=== PATIENT | male | born 1950 | race Caucasian/White ===

== ENCOUNTER 2018-04-06 05:31 | Inpatient (IN) ==
--- NOTE | 2018-04-02 14:02 | MH ---
cc: Dyllan Ocampo MD DATE OF ADMISSION: 04/06/2018 ADMITTING DIAGNOSIS: Osteoarthritic degeneration, left and right knee. He is now being admitted for right and left total knee arthroplasties. ADMISSION HISTORY AND PRESENT ILLNESS: This pleasant 67-year-old male is being admitted today for total knee arthroplasty of both left and right knees due to severe painful arthritic degeneration with genu varus deformities. PAST MEDICAL HISTORY: He has a history of high cholesterol, for which he takes atorvastatin; high blood pressure, for which he takes lisinopril; gout, for which he takes allopurinol and amlodipine. PAST SURGICAL HISTORY: None. REVIEW OF SYSTEMS: Noncontributory. FAMILY HISTORY: Noncontributory. SOCIAL HISTORY: He does not smoke. He does not drink. ALLERGIES: HE HAS NO KNOWN ALLERGIES. PHYSICAL EXAMINATION: GENERAL: We find a 67-year-old male, well developed, well nourished, oriented x3, complaining of pain and problems in both knees from his genu varus deformity. VITAL SIGNS: Blood pressure 118/70, pulse 92 and regular, respirations 16, temperature 98.3, pulse oximetry 98% on room air. HEENT: Eyes: PERRL. EOMI. Ears, nose, mouth clear. NECK: Supple. LUNGS: Clear. HEART: Regular rate. ABDOMEN: Soft, positive, positive bowel sounds, nontender. EXTREMITIES: Both knees have genu varus deformities with crepitus on range of motion and loss of motion. He is otherwise neurovascularly intact. IMPRESSION: Severe painful arthritic degeneration, both left and right knees, with genu varus deformity. PLAN: Admission for bilateral total knee arthroplasties today. The patient was given prescription for postoperative pain and anticoagulation control in the office and Celebrex and plans on going to rehab after surgery. Dyllan Ocampo MD JRR/ts , 01:18 PM , 01:26 PM
[2018-04-06] MEDS ORDERED: Sodium Chlor 0.9% Inj 250 ML ONE (06:17)
[2018-04-06] MEDS ORDERED: Dexamethasone Inj 20 MG/5 ML Vial IV.PUSH ONE (06:17)
[2018-04-06] MEDS: Dexamethasone Inj 20 MG/5 ML Vial ONE ×2 (06:23→06:55)
[2018-04-06] MEDS ORDERED: Chlorhexidine 4% Topical 120 APPLIC/120 ML Bottle TOPICAL SCH (06:30)
[2018-04-06] MEDS ORDERED: Chlorhexidine Gluconate 2% 1 Pack (2 Cloths) TOPICAL SCH (06:30)
[2018-04-06] MEDS ORDERED: Metoprolol Tartrate 25 MG Tablet PO SCH (06:30)
[2018-04-06] MEDS ORDERED: Sodium Chlor 0.9% Inj 80 ML, Bupivacaine Liposo PF 1.3% Inj 20 ML, Bupivacaine PF 0.25%... P-ARTICULR SCH ×3 (06:45)
[2018-04-06] MEDS ORDERED: SODIUM CHLOR 0.9% IV.SIG SCH ×2 (07:00→09:20)
[2018-04-06] MEDS ORDERED: ceFAZolin 2 GM/NS 100 ML IV; Q8H IV.SIG SCH ×2 (07:00)
[2018-04-06] MEDS ORDERED: Vancomycin Inj 1,000 MG in Sodium Chlor 0.9% Inj 250 ML IV.SIG SCH (07:00)
[2018-04-06] MEDS ORDERED: TRANEXAMIC ACID IV.SIG SCH ×2 (07:00→09:20)
[2018-04-06] MEDS ORDERED: Sodium Chlor 0.9% Inj 500 ML IV.SIG SCH (07:00)
[2018-04-06] MEDS ORDERED: Post-op Orders (for Pharmacy) OTHER STA (07:50)
[2018-04-06] MEDS ORDERED: Bisacodyl 10 MG Supp RECTAL PRN (07:50)
--- NOTE | 2018-04-06 07:58 | P.DCO ---
- Physical Therapy Order: Evaluate and treat, Improve ambulation, Strength and gait training - Occupational Therapy Order: Evaluate and treat - Home Health Nursing Order: Medical education - Case Management Consult Yes - Certification I have seen patient Scott Lerner on 04/06/18. My clinical findings support the need for the requested home health care services because: High risk of falls I certify that my clinical findings support that this patient is homebound because: Post-op weakness, Unsteady gait/balance
[2018-04-06] MEDS ORDERED: Tobramycin Sulfate 1,200 MG Vial (for ortho/sterile core) OTHER ONE (08:47)
[2018-04-06] MEDS ORDERED: Phenylephrine/NS 1000 MCG/10ML Syringe IV.PUSH ONE (12:00)
[2018-04-06] MEDS ORDERED: Lidocaine PF 1% Inj 5 ML Syringe INFILTRATN ONE (12:00)
[2018-04-06] MEDS ORDERED: Neostigmine Inj 5 MG/5 ML Syringe IV.PUSH ONE (12:00)
[2018-04-06] MEDS ORDERED: Glycopyrrolate Inj 1 MG/5 ML Syringe IV.PUSH ONE (12:00)
--- NOTE | 2018-04-06 12:02 | P.CONIM ---
History of Present Illness Consult date: 04/06/18 Requesting Physician: Arabella Ocampo Reason for Consult: Medical Management Primary Care Provider: Gildardo Herndon History of Present Illness: Mr. Lerner is a pleasant 67 y/o male with HTN, BPH, CKD stage 3, GERD and osteoarthritis. Pt was admitted to [facility] on 04/06/[address] Ocampo for bilateral total knee replacements for severe osteoarthritis. The [facility] Hospitalist team was consulted to help with medical management. Post-operatively pt complained of some abdominal distension and gas pain. Some nausea but no vomiting. Denies any chest pain, SOB or palpitations. Past Medical Hx: HTN CKD, stage 3 (Cr 1.37/BUN 23, GFR 52 on 03/30/18) BPH Osteoarthritis Anxiety Hx of gout Vitamin D deficiency GERD Gonzales's Esophagus Hx of colon polyps Past Surgical Hx: Left knee arthroscopy with partial medical meniscectomy on 11/07/[address] White Tonsillectomy EGD/colonoscopy Family Hx: Father with hx of lymphoma Social Hx: Denies any alcohol, tobacco or illicit drug use Pt is and lives locally [facility] - History History Provided By: Patient - Medical History Medical History: Medical History (Last Reviewed 04/09/18 @ 14:52 by Sadaf Mcknight) BPH (benign prostatic hyperplasia) Barretts esophagus Chronic kidney disease, stage 3 Colon polyps Vitamin D deficiency Anxiety Arthritis GERD (gastroesophageal reflux disease) Gout High cholesterol Hypertension Wears glasses - Surgical History Surgical History: Surgical History (Last Reviewed 04/09/18 @ 14:52 by Sadaf Mcknight) History of tonsillectomy History of arthroscopy of left knee - Tobacco History Second Hand Smoke Exposure: Yes Smoking Status: Never smoker - Alcohol History How Often Do You Have a Drink Containing Alcohol: Never - Substance Use History Substance History: No History of Abuse - Travel History Recent Travel in the [place] Within the Last 8 Weeks: No Recent Travel Out of the Country Within the Last 8 Weeks: No Medications and Allergies Allergies Allergy/AdvReac Type Severity Reaction Status Date / Time No Known Allergies Allergy Verified 04/06/18 06:08 Home Medications Medication Instructions Recorded Confirmed Type allopurinol 150 mg PO BID 03/30/18 04/09/18 History alprazolam 1 mg PO BID PRN 03/30/18 04/09/18 History amitriptyline 25 mg PO HS 03/30/18 04/09/18 History amlodipine 5 mg PO DAILY 03/30/18 04/09/18 History atorvastatin 20 mg PO DAILY 03/30/18 04/09/18 History hydrochlorothiazide 25 mg PO DAILY 03/30/18 04/09/18 History lisinopril 40 mg PO DAILY 03/30/18 04/09/18 History omeprazole 20 mg PO DAILY 03/30/18 04/09/18 History zolpidem 5 mg PO HS PRN 03/30/18 04/09/18 History Active Medications: Active Medications Hydrocodone Bitart/Acetaminophen ([place] 7.5/325) 1 tab PO Q4H PRN PRN Reason: PAIN LESS THAN 5 ON SCALE Hydrocodone Bitart/Acetaminophen ([place] 7.5/325) 2 tab PO Q6H PRN PRN Reason: PAIN SCALE 5 TO 10 Al Hydroxide/Mg Hydroxide (Milk Of Magnesia Liq) 30 ml PO BID PRN PRN Reason: Mild Constipation Allopurinol (Zyloprim) 150 mg PO BID [facility] Alprazolam (Xanax) 1 mg PO BID PRN PRN Reason: Anxiety Amitriptyline HCl (Elavil) 25 mg PO DAILY [facility] Amlodipine Besylate (Norvasc) 5 mg PO DAILY [facility] Apixaban (Eliquis) 2.5 mg PO BID [facility] Atorvastatin Calcium (Lipitor) 20 mg PO DAILY [facility] Bisacodyl (Dulcolax Supp) 10 mg RECTAL DAILY PRN PRN Reason: SEVERE CONSITIPATION Chlorhexidine Gluconate (Chlorhexidine 2% Cloth) 3 pack TOPICAL [employer]IL[employer]SE [employer] [facility] Stop: 04/09/18 06:16 Last Admin: 04/06/18 05:40 Dose: 3 pack Chlorhexidine Gluconate (Hibiclens 4% Topical) 1 applicatio TOPICAL ONCE [facility] Stop: 04/10/18 06:29 Last Admin: 04/06/18 06:10 Dose: 1 applicatio Sodium Chloride 80 ml/Bupivacaine Liposome 20 ml/Bupivacaine HCl 20 ml 0 ml P- ARTICULR ONCE [facility] Last Admin: 04/06/18 09:40 Dose: 120 bag Hydrochlorothiazide (Hydrodiuril) 25 mg PO DAILY [facility] Sodium Chloride (Ns Inj) 500 mls @ 30 mls/hr IV.SIG .Q10H [facility] Stop: 08/30/18 06:16 Tranexamic Acid 849 mg/ Sodium (Chloride) 108.49 mls @ 200 mls/hr IV.SIG ONCE [facility] Stop: 04/07/18 06:59 Last Infusion: 04/06/18 08:15 Dose: Infused Tranexamic Acid 849 mg/ Sodium (Chloride) 108.49 mls @ 200 mls/hr IV.SIG ONCE [facility] Stop: 04/07/18 09:19 Last Infusion: 04/06/18 11:15 Dose: Infused Vancomycin HCl 1,000 mg/ (Sodium Chloride) 250 mls @ 250 mls/hr IV.SIG [employer]ILHOUSE [employer] [facility] Stop: 04/09/18 06:17 Last Admin: 04/06/18 06:59 Dose: Not Given Cefazolin Sodium 2,000 mg/ (Sodium Chloride) 100 mls @ 200 mls/hr IV.SIG ONCE [facility] Cefazolin Sodium 1,000 mg/ (Sodium Chloride) 100 mls @ 200 mls/hr IV.SIG Q6H [facility] Stop: 04/07/18 01:29 Lactated Ringer's (Lr 1000 Ml Inj) 1,000 mls @ 80 mls/hr IV.CONT .[id number] [facility] Last Admin: 04/06/18 09:15 Dose: 80 mls/hr Lactulose (Lactulose Liq) 30 ml PO DAILY PRN PRN Reason: SEVERE CONSITIPATION Lisinopril (Prinivil) 40 mg PO DAILY [facility] Metoprolol Tartrate (Lopressor) 25 mg PO [employer] [facility] Stop: 04/09/18 06:16 Morphine Sulfate (Morphine Inj) 2 mg IV.PUSH Q3H PRN PRN Reason: BREAKTHROUGH PAIN Multivitamins/Minerals (Theragran-M) 1 tab PO BID [facility] Stop: 06/05/18 08:59 Ondansetron HCl (Zofran Odt) 4 mg PO Q6H PRN PRN Reason: NAUSEA OR VOMITING Pantoprazole Sodium (Protonix) 20 mg PO DAILY [facility] Povidone Iodine (Betadine 5% Antisepsis Kit) 1 applicatio EACH NARE [employer] [facility] Stop: 04/09/18 06:16 Last Admin: 04/06/18 06:58 Dose: 1 applicatio Senna/Docusate Sodium (Lashell-Colace) 1 tab PO BID [facility] Sennosides (Senokot) 17.2 mg PO BID PRN PRN Reason: Moderate Constipation Sodium Chloride (Ns Flush) 2 ml IV.FLUSH BID [facility] Sodium Chloride (Ns Flush) 2 ml IV.FLUSH PRN PRN PRN Reason: FLUSH AFTER USING IV ACCESS Zolpidem Tartrate (Ambien) 5 mg PO HS PRN PRN Reason: Sleep Exam Vital signs: Vital Signs 04/06/18 06:12 Temperature 97.7 F Pulse Rate 77 Respiratory Rate 18 Blood Pressure 148/82 H Pulse Oximetry 95 Intake & Output 04/05/18 04/06/18 04/06/18 18:59 06:59 18:59 Intake Total 2716.98 / 2716.98 Output Total 200 / 200 Balance 2516.98 / 2516.98 Weight 84.9 kg Intake: IV 1216.98 / 1216.98 LR 1000 mL Inj 1,000 ML @ 30 1000 / 1000 mls/hr IV.SIG .Q24H [facility] Rx#: [id number] Cyklokapron Inj 849 MG In NS 216.98 / 216.98 Inj 100 ML @ 200 mls/hr IV.SIG ONCE [facility] Rx#:[id number] Anesthesia Amount 1500 / 1500 Output: Estimated Blood Loss 200 / 200 Other: Weight On Admission 84.9 kg Narrative: GENERAL: NAD, AAOx3 SKIN: Warm and dry. HEENT: Atraumatic. Normocephalic. Pupils equal and round. No scleral icterus. No injection or drainage. No nasal bleeding or discharge. Mucous membranes pink and moist. NECK: Trachea midline. No JVD. CARDIO: Regular rate and rhythm. RESP: No accessory muscle use. Clear to auscultation. Breath sounds equal bilaterally. ABD: Abdomen soft, non-tender, nondistended. Hepatic and splenic margins not palpable. EXT: Extremities without clubbing, cyanosis, or edema. No obvious deformities. NEURO: Awake and alert. No obvious cranial nerve deficits. Motor grossly within normal limits. Five out of 5 muscle strength in the arms and legs. Normal speech. PSYCH: Appropriate mood and affect; insight and judgment normal. Results - Labs CBC & Chem 7: 04/08/18 15:17 04/08/18 04:10 Labs: Laboratory Results - last 24 hr 04/06/18 06:05 Blood Type A Positive Blood Type Recheck Required Antibody Screen Negative Assessment and Plan - Assessment (1) Osteoarthritis of both knees Code(s): M17.0 - Bilateral primary osteoarthritis of knee Status: Chronic Plan: Osteoarthritis bilateral knees s/p Bilateral TKR on 04/06/18 - Pt is a 67 y/o male with HTN, BPH, CKD stage 3, GERD and osteoarthritis. - Pt was admitted to [facility] on 04/06/[address] Ocampo for bilateral total knee replacements for severe osteoarthritis. - Post-op pain control per Ortho - PT daily - IS - Constipation precautions - Eliquis is ordered for DVT prophylaxis post-op - Check KUB HTN - Home meds resumed - Will monitor BP post-operatively CKD, stage 3 - Stable - Monitor labs GERD - PPI (2) Status post bilateral knee replacements Code(s): Z96.653 - Presence of artificial knee joint, bilateral Status: Acute (3) HTN (hypertension) Code(s): I10 - Essential (primary) hypertension Status: Chronic (4) CKD (chronic kidney disease) stage 3, GFR 30-59 ml/min Code(s): N18.3 - Chronic kidney disease, stage 3 (moderate) Status: Chronic (5) GERD (gastroesophageal reflux disease) Code(s): K21.9 - Gastro-esophageal reflux disease without esophagitis Status: Chronic - Attending Attestation Patient examined. Assessment and plan formulated with Chasity Mendoza PA-C. I agree with the above. (3) HTN (hypertension) Qualifiers: Hypertension type: essential hypertension Qualified Code(s): I10 - Essential (primary) hypertension (5) GERD (gastroesophageal reflux disease) Qualifiers: Esophagitis presence: esophagitis presence not specified Qualified Code(s): K21.9 - Gastro-esophageal reflux disease without esophagitis
[2018-04-06] MEDS ORDERED: *Meperidine Inj 25 MG/ML Vial PERIprocedural Use ONLY ONE (12:12)
[2018-04-06] MEDS ORDERED: Morphine Inj 4 MG/ML Vial ONE (12:14)
[2018-04-06] MEDS ORDERED: fentaNYL Citrate Inj 100 MCG/2 ML Ampul ONE ×2 (12:14)
[2018-04-06] MEDS ORDERED: *morphine SULFATE 10 MG/ML PERIprocedure ONLY ONE (12:26)
[2018-04-06] MEDS ORDERED: *morphine SULFATE 4 MG/ML PERIprocedure ONLY ONE (13:01)
--- NOTE | 2018-04-06 13:03 | MP ---
cc: Dyllan Ocampo MD DATE OF OPERATION: 04/06/2018 PREOPERATIVE DIAGNOSIS: Osteoarthritic degeneration, left and right knees. POSTOPERATIVE DIAGNOSIS: Osteoarthritic degeneration, left and right knees. PROCEDURE PERFORMED: Bilateral total knee arthroplasties using Consensus components, left knee using a size 4 femur, size 3 tibia, size 16 insert and size 1 patella with 2 batches of tobramycin-impregnated DePuy cement. The right knee was done using Consensus components, size 4 femur, 3 tibia, 12 insert and 1 patella with 2 batches of tobramycin-impregnated cement. SURGEON: Dyllan Ocampo MD TOW CAR DRIVER: YANIQUE Aguillon ANESTHESIA: General intubation and block. DESCRIPTION OF PROCEDURE: The left knee was done first. After successful induction of anesthesia, the patient is placed on the operating room table in the supine position. The knee is prepped and draped in the usual manner. A tourniquet is inflated at the upper thigh and set to 300 mmHg pressure after exsanguination of the lower extremity. A longitudinal incision is made extending from 3 inches proximal to the superior pole of the patella, across the patella in longitudinal fashion, and down past the insertion of the tibial tubercle into the proximal tibia. The incision is carried down through subcutaneous tissue along the medial aspect of the patella and retinaculum, down through the capsule to expose the knee joint. The patella and patellar tendon are freed up enough to allow the patella to be inverted and retracted off the lateral side of the knee joint. The knee joint is left exposed. Small osteophytes are removed. All soft tissue is removed to allow proper position of the femoral and tibial cutting jig guide. The first femoral jig is then inserted along the distal end of the femur after first measuring to decide whether this is a small, medium, or large component. The notch is then drilled and the tibial cutting guide inserted into the femoral cutting guide, along with the ankle brace to allow for proper measurement of the tibial cutting surface that needed to be resected. Pins are inserted into the tibial cutting jig and femoral cutting jig to hold them in place. An oscillating saw is then used to resect the surface of the tibia. The surface of the tibia is then completely removed using sharp and blunt dissection. The anterior and posterior cuts of the femur are then made as well using an oscillating saw through the cutting guide. All guides are then removed and the varus/valgus angulation cutting guide applied to the femur for proper measurement of the proper amount of valgus. The anterior cutting guide for the femur is then inserted at the anterior femoral cuts made. Next, the first block trial is inserted into the femur to allow for proper condyle drill holes to be made which are then made followed by removal of the bone between the condyles using an oscillating saw as well as the bone removed at the most posterior surface of the condyle. After this, this guide is removed and the chamfer cuts made using the chamfer cutting guide from both anterior and posterior. Next, the femoral trial is then inserted, the tibial surface reflected anterior to expose the tibial surface and a tibial stem guide is inserted after first measuring for a standard, standard plus, large, or large plus surface to be used. After the stem is impacted the trial tibial surface is applied followed by the trial meniscal components. After full range of motion is found with the appropriate length meniscal components varying the patella is prepared by resecting the posterior aspect of the patella using an oscillating saw, inserting a trial. The trial is then removed and the cruciate cutting guide applied using the bur to cut the cruciate cuts. After cruciate cuts are made all trials are removed. The wound is irrigated copiously with antibiotic solution and Water Pik and the actual components inserted into place using the aforementioned components. After the cement has hardened and the components are found to have full range of motion with no instability, the tourniquet is deflated, total tourniquet time being 51 minutes at 300 mmHg pressure. The wound again is irrigated copiously with antibiotic solution, meticulous hemostasis achieved. The deep fascia was approximated with running #2 Quill and subcutaneous tissue approximated using interrupted and running 2-0 FiberWire and skin approximated with jaclyn. Wet and dry dressing is applied to the wound followed by a Prineo dressing, sterile dressing and knee immobilizer. No drain was utilized. The right knee was then done. The knee is prepped and draped in the usual manner. A tourniquet is inflated at the upper thigh and set to 300 mmHg pressure after exsanguination of the lower extremity. A longitudinal incision is made extending from 3 inches proximal to the superior pole of the patella, across the patella in longitudinal fashion, and down past the insertion of the tibial tubercle into the proximal tibia. The incision is carried down through subcutaneous tissue along the medial aspect of the patella and retinaculum, down through the capsule to expose the knee joint. The patella and patellar tendon are freed up enough to allow the patella to be inverted and retracted off the lateral side of the knee joint. The knee joint is left exposed. Small osteophytes are removed. All soft tissue is removed to allow proper position of the femoral and tibial cutting jig guide. The first femoral jig is then inserted along the distal end of the femur after first measuring to decide whether this is a small, medium, or large component. The notch is then drilled and the tibial cutting guide inserted into the femoral cutting guide, along with the ankle brace to allow for proper measurement of the tibial cutting surface that needed to be resected. Pins are inserted into the tibial cutting jig and femoral cutting jig to hold them in place. An oscillating saw is then used to resect the surface of the tibia. The surface of the tibia is then completely removed using sharp and blunt dissection. The anterior and posterior cuts of the femur are then made as well using an oscillating saw through the cutting guide. All guides are then removed and the varus/valgus angulation cutting guide applied to the femur for proper measurement of the proper amount of valgus. The anterior cutting guide for the femur is then inserted at the anterior femoral cuts made. Next, the first block trial is inserted into the femur to allow for proper condyle drill holes to be made which are then made followed by removal of the bone between the condyles using an oscillating saw as well as the bone removed at the most posterior surface of the condyle. After this, this guide is removed and the chamfer cuts made using the chamfer cutting guide from both anterior and posterior. Next, the femoral trial is then inserted, the tibial surface reflected anterior to expose the tibial surface and a tibial stem guide is inserted after first measuring for a standard, standard plus, large, or large plus surface to be used. After the stem is impacted the trial tibial surface is applied followed by the trial meniscal components. After full range of motion is found with the appropriate length meniscal components varying the patella is prepared by resecting the posterior aspect of the patella using an oscillating saw, inserting a trial. The trial is then removed and the cruciate cutting guide applied using the bur to cut the cruciate cuts. After cruciate cuts are made all trials are removed. The wound is irrigated copiously with antibiotic solution and Water Pik and the actual components inserted into place using the aforementioned components. After the cement has hardened and the components are found to have full range of motion with no instability, the tourniquet is deflated, total tourniquet time being 49 minutes at 300 mmHg pressure. The wound again is irrigated copiously with antibiotic solution, meticulous hemostasis achieved. The deep fascia was approximated with running #2 Quill, subcutaneous tissue approximated using interrupted and running 2-0 Quill sutures and skin approximated with jaclyn. Wet and dry dressing is applied to the wound followed by a Prineo dressing, sterile dressing and knee immobilizer. No drain was utilized. Exparel 120 mL was used, half in each knee, a combination of Exparel, normal saline and 0.25% Marcaine plain for extra pain control. The left knee necessitated repair of the medial collateral ligament with #1 Ti-Cron to assure a stable knee. The estimated blood loss on the right knee was 100 mL ESTIMATED BLOOD LOSS: For the left knee was 100 mL. For the right knee was 100 mL. COUNTS: Sponge and suture counts were correct. COMPONENTS: The components used were Consensus components, left knee using a size 4 femur, size 3 tibia, size 16 insert and size 1 patella with 2 batches of tobramycin-impregnated DePuy cement. The right knee was done using Consensus components, size 4 femur, 3 tibia, 12 insert and 1 patella with 2 batches of tobramycin-impregnated cement. The patient tolerated the procedure well and left the operating room in satisfactory condition. YANIQUE Nicholas, was present during the entire procedure to include patient positioning and the procedure. The medical necessity of the nurse practitioner certified pathology assistant was indicated in this case due to the surgical complexity of the case itself. During the surgical case, the surgical processor was working the back table and my surgical processor YANIQUE was directly assisting me. JMD ALEXIS Loomis/saida , 12:04 PM , 12:11 PM
--- NOTE | 2018-04-06 13:03 | XR ---
EXAM DATE: 04/06/2018 12:37 PM EDT AGE/SEX: 67 years / Male INDICATIONS: Total right knee replacement. CLINICAL DATA: This is the patient's initial encounter. Patient reports that signs and symptoms have been present for 1 day and indicates a pain score of Nonresponsive. MEDICAL/SURGICAL HISTORY: None. None. COMPARISON: No prior exams available for comparison. FINDINGS: Right knee arthroplasty in anatomic alignment. Hardware appears intact. Osseous structures are intact without acute bony fracture. Immediate postsurgical soft tissue changes noted. CONCLUSION: 1. Status post right knee arthroplasty in anatomic alignment without acute bony fracture. Electronically signed by: Zohaib Woodard MD 04/06/2018 1:02 PM EDT
--- NOTE | 2018-04-06 13:04 | XR ---
EXAM DATE: 04/06/2018 12:36 PM EDT AGE/SEX: 67 years / Male INDICATIONS: Total left knee replacement. CLINICAL DATA: This is the patient's initial encounter. Patient reports that signs and symptoms have been present for 1 day and indicates a pain score of Nonresponsive. MEDICAL/SURGICAL HISTORY: None. None. COMPARISON: No prior exams available for comparison. FINDINGS: Left knee arthroplasty components in anatomic alignment. Hardware appears intact. Osseous structures are intact without acute bony fracture. Immediate postsurgical features are noted in the soft tissues . CONCLUSION: 1. Left knee arthroplasty in anatomic alignment without acute fracture. Electronically signed by: Zohaib Woodard MD 04/06/2018 1:03 PM EDT
[2018-04-06] MEDS: amLODIPine 5 MG Tablet PO SCH (13:05)
[2018-04-06] MEDS: Senna/Docusate Sodium 8.6/50 MG Tablet PO SCH (13:05)
[2018-04-06] MEDS: Amitriptyline 25 MG Tablet PO SCH ×2 (13:05→23:39)
[2018-04-06] MEDS: Lisinopril 20 MG Tablet PO SCH (13:05)
[2018-04-06] MEDS: Allopurinol 300 MG Tablet PO SCH (13:06)
[2018-04-06] MEDS: Pantoprazole Sodium 20 MG DR Tablet PO SCH (13:06)
[2018-04-06] MEDS: Multivitamin/Minerals Therapeutic Tablet PO SCH (13:06)
--- NOTE | 2018-04-06 15:59 | P.BOP ---
- Preoperative Diagnosis (1) Osteoarthritis of both knees - Postoperative Diagnosis (1) Status post bilateral knee replacements Date of procedure: 04/06/18 Procedure: Bilateral Total knees Implants: See implant record Anesthesia: GETA (General) Surgeon: Dyllan Ocampo MD Hub Borer: Yumiko Ortiz Estimated blood loss (mL): 200 Tourniquet time (min): 102 (Right knee: 50 mins Left Knee: 52 mins at 300mmHg) Urine output (mL): 0 (no pitt) Pathology: none sent Condition: stable Disposition: PACU
[2018-04-06] MEDS: Morphine Inj 4 MG/ML Vial IV.PUSH PRN (16:56)
--- NOTE | 2018-04-06 19:24 | XR ---
EXAM DATE: 04/06/2018 7:21 PM EDT AGE/SEX: 67 years / Male INDICATIONS: Distention. CLINICAL DATA: This is the patient's initial encounter. Patient reports that signs and symptoms have been present for 3 days and indicates a pain score of 9/10. MEDICAL/SURGICAL HISTORY: . Knee surgery. Since surgery, patient states that he is constipated and is having trouble eating. . Knee surgery COMPARISON: No prior exams available for comparison. FINDINGS: The stomach is distended. The remaining aspects of the bowel do not appear distended. Free air is no t seen. There is degenerative change in the lower lumbar spine. The lung bases are unremarkable. CONCLUSION: Distended stomach. Electronically signed by: Ji Kwong MD 04/06/2018 7:22 PM EDT
[2018-04-06] MEDS ORDERED: Zolpidem Tartrate 5 MG Tablet PO PRN (21:00)
[2018-04-07 06:28] LABS: Hematocrit 35.8 % (39.0-51.0); Hemoglobin 12.2 gm/dL (13.0-17.0)
[2018-04-07] MEDS: Senna/Docusate Sodium 8.6/50 MG Tablet PO SCH ×3 (08:14→21:16)
[2018-04-07] MEDS: Allopurinol 300 MG Tablet PO SCH ×3 (08:14→21:17)
[2018-04-07] MEDS: Multivitamin/Minerals Therapeutic Tablet PO SCH ×3 (08:14→21:18)
[2018-04-07] MEDS: Pantoprazole Sodium 20 MG DR Tablet PO SCH (09:07)
[2018-04-07] MEDS: hydroCHLOROthiazide 25 MG Tablet PO SCH (09:09)
[2018-04-07] MEDS: amLODIPine 5 MG Tablet PO SCH (09:09)
[2018-04-07] MEDS: Lisinopril 20 MG Tablet PO SCH (09:10)
[2018-04-07] MEDS: Morphine Inj 4 MG/ML Vial IV.PUSH PRN ×2 (09:11→19:52)
[2018-04-07] MEDS: Amitriptyline 25 MG Tablet PO SCH (09:11)
--- NOTE | 2018-04-07 10:32 | P.PNOP ---
Subjective Interval history: Pt basically comfortable today with his knees. His main complaint is abdominal gas and sore throat. Physical Exam Vital signs: Vital Signs 04/06/18 12:05 04/06/18 12:15 04/06/18 12:30 Temperature 97.8 F Pulse Rate 117 H 111 H 105 H Respiratory Rate 20 19 16 Blood Pressure 133/80 141/72 H 107/64 Pulse Oximetry 99 99 98 04/06/18 12:45 04/06/18 13:00 04/06/18 13:30 Temperature Pulse Rate 108 H 107 H 108 H Respiratory Rate 17 14 16 Blood Pressure 106/66 106/62 123/90 Pulse Oximetry 97 98 97 04/06/18 14:00 04/06/18 15:00 04/06/18 15:37 Temperature 98 F Pulse Rate 110 H 105 H 102 H Respiratory Rate 17 13 13 Blood Pressure 100/64 111/63 103/56 L Pulse Oximetry 97 98 97 04/06/18 16:00 04/07/18 08:00 Temperature 97.3 F L 97.6 F Pulse Rate 107 H 101 H Respiratory Rate 16 17 Blood Pressure 100/58 L 133/74 Pulse Oximetry 95 98 Intake & Output 04/06/18 04/07/18 04/07/18 18:59 06:59 18:59 Intake Total 2973.98 / 2973.98 420 / 420 100 / 100 Output Total 200 / 200 500 / 500 Balance 2773.98 / 2773.98 -80 / -80 100 / 100 Weight 105.7 kg Intake: IV 1473.98 / 1473.98 100 / 100 100 / 100 LR 1000 mL Inj 1,000 ML @ 80 157 / 157 100 / 100 mls/hr IV.CONT .[id number] [facility] Rx# :[id number] LR 1000 mL Inj 1,000 ML @ 30 1000 / 1000 mls/hr IV.SIG .Q24H [facility] Rx#: [id number] Cyklokapron Inj 849 MG In NS 216.98 / 216.98 Inj 100 ML @ 200 mls/hr IV.SIG ONCE [facility] Rx#:[id number] Ancef Inj 1,000 MG In NS Inj 100 / 100 100 / 100 100 ML @ 200 mls/hr IV.SIG Q6H [facility] Rx#:[id number] Oral 320 / 320 Anesthesia Amount 1500 / 1500 Output: Urine 500 / 500 Estimated Blood Loss 200 / 200 Other: Date of Last Bowel Movement 04/05/18 04/05/18 - Constitutional no acute distress Results - Labs CBC & Chem 7: 04/07/18 04:27 Laboratory Results - last 24 hr 04/07/18 04:27 Hgb 12.2 L Hct 35.8 L - Imaging Impressions Abdomen X-Ray 04/06/18 00:00 CONCLUSION: Distended stomach. Knee X-Ray 04/06/18 00:00 CONCLUSION: 1. Left knee arthroplasty in anatomic alignment without acute fracture. Knee X-Ray 04/06/18 07:50 CONCLUSION: 1. Status post right knee arthroplasty in anatomic alignment without acute bony fracture. Assessment and Plan - Problem List (1) Status post bilateral knee replacements Code(s): Z96.653 - Presence of artificial knee joint, bilateral Status: Acute - Attending Attestation Attending Attestation: Doing well first day post op. Cepacol lozenges for throat. Awaiting discharge over next day or so to [facility] for rehab.
--- NOTE | 2018-04-07 11:17 | P.PNIM ---
Subjective Interval history: Pt continues to c/o abdominal distension. Physical Exam Vital signs: 04/06/18 16:00 04/07/18 08:00 04/07/18 11:07 Temperature 97.3 F L 97.6 F Pulse Rate 107 H 101 H Respiratory Rate 16 17 Blood Pressure 100/58 L 133/74 Pulse Oximetry 95 98 99 Narrative: GENERAL: This is a well-nourished, well-developed patient, in no apparent distress. CARDIOVASCULAR: Regular rate and rhythm without murmurs, gallops, or rubs. RESPIRATORY: Clear to auscultation. Breath sounds equal bilaterally. No wheezes , rales, or rhonchi. GASTROINTESTINAL: Abdomen soft, mild abdominal distension, decreased bowel sounds MUSCULOSKELETAL: Extremities without clubbing, cyanosis, or edema. NEURO: Alert & Oriented x4 to person, place, time, situation. Moves all ext x4 Results - Labs CBC & Chem 7: 04/08/18 15:17 04/08/18 04:10 - Imaging Impressions Abdomen X-Ray 04/06/18 00:00 CONCLUSION: Distended stomach. Knee X-Ray 04/06/18 00:00 CONCLUSION: 1. Left knee arthroplasty in anatomic alignment without acute fracture. Knee X-Ray 04/06/18 07:50 CONCLUSION: 1. Status post right knee arthroplasty in anatomic alignment without acute bony fracture. Assessment and Plan - Assessment (1) Osteoarthritis of both knees Code(s): M17.0 - Bilateral primary osteoarthritis of knee Status: Chronic Plan: Osteoarthritis bilateral knees s/p Bilateral TKR on 04/06/18 - Pt is a 67 y/o male with HTN, BPH, CKD stage 3, GERD and osteoarthritis. - Pt was admitted to [facility] on 04/06/[address] Ocampo for bilateral total knee replacements for severe osteoarthritis. - Post-op pain control per Ortho - PT daily - IS - Constipation precautions - Eliquis is ordered for DVT prophylaxis post-op HTN -stable - HCTZ, norvasc CKD, stage 3 - Stable - Monitor labs GERD - PPI Abdominal distension - KUB (04/06) --> gastric distension - encourage movement - reglan 10mg TID x 24 hours. - Simethicone (2) Status post bilateral knee replacements Code(s): Z96.653 - Presence of artificial knee joint, bilateral Status: Acute (3) HTN (hypertension) Code(s): I10 - Essential (primary) hypertension Status: Chronic (4) CKD (chronic kidney disease) stage 3, GFR 30-59 ml/min Code(s): N18.3 - Chronic kidney disease, stage 3 (moderate) Status: Chronic (5) GERD (gastroesophageal reflux disease) Code(s): K21.9 - Gastro-esophageal reflux disease without esophagitis Status: Chronic (3) HTN (hypertension) Qualifiers: Hypertension type: essential hypertension Qualified Code(s): I10 - Essential (primary) hypertension (5) GERD (gastroesophageal reflux disease) Qualifiers: Esophagitis presence: esophagitis presence not specified Qualified Code(s): K21.9 - Gastro-esophageal reflux disease without esophagitis
[2018-04-07] MEDS: Simethicone 125 MG Chew Tablet PO SCH ×2 (15:13→17:38)
[2018-04-07] MEDS: Polyethylene Glycol 3350 17 GM Packet PO SCH (21:18)
[2018-04-07] MEDS ORDERED: HYDROmorphone PF Inj 2 MG/ML Vial IV.PUSH PRN (21:55)
[2018-04-08 04:30] LABS: Hematocrit 35.2 % (39.0-51.0); Hemoglobin 11.9 gm/dL (13.0-17.0)
[2018-04-08 04:51] LABS: Calcium 8.6 mg/dL (8.5-10.1); Carbon Dioxide 29.2 meq/L (21.0-32.0)
[2018-04-08] MEDS: Allopurinol 300 MG Tablet PO SCH ×2 (09:30→21:23)
[2018-04-08] MEDS: Pantoprazole Sodium 20 MG DR Tablet PO SCH (09:31)
[2018-04-08] MEDS: Lisinopril 20 MG Tablet PO SCH (09:31)
[2018-04-08] MEDS: amLODIPine 5 MG Tablet PO SCH (09:31)
[2018-04-08] MEDS: Multivitamin/Minerals Therapeutic Tablet PO SCH ×2 (09:31→21:23)
[2018-04-08] MEDS: Amitriptyline 25 MG Tablet PO SCH (09:32)
[2018-04-08] MEDS: Senna/Docusate Sodium 8.6/50 MG Tablet PO SCH ×2 (09:32→21:23)
[2018-04-08] MEDS: hydroCHLOROthiazide 25 MG Tablet PO SCH (09:32)
[2018-04-08] MEDS: Simethicone 125 MG Chew Tablet PO SCH ×3 (09:33→18:49)
--- NOTE | 2018-04-08 10:52 | P.PNOP ---
Subjective Interval history: Up in chair, exercising his legs Pain level 6/10 Physical Exam Vital signs: Vital Signs 04/07/18 11:07 04/07/18 12:00 04/07/18 16:00 Temperature 97.7 F 97.6 F Pulse Rate 110 H 117 H Respiratory Rate 16 19 Blood Pressure 126/78 128/74 Pulse Oximetry 99 96 93 L 04/07/18 20:00 04/08/18 00:00 04/08/18 04:00 Temperature 97.9 F 97.9 F 98 F Pulse Rate 114 H 115 H 111 H Respiratory Rate 18 18 18 Blood Pressure 135/76 128/59 L 123/71 Pulse Oximetry 93 L 93 L 93 L 04/08/18 08:00 Temperature 98.0 F Pulse Rate 106 H Respiratory Rate 19 Blood Pressure 129/70 Pulse Oximetry 93 L Intake & Output 04/07/18 04/08/18 04/08/18 18:59 06:59 18:59 Intake Total 1000 / 1000 570 / 570 800 / 800 Balance 1000 / 1000 570 / 570 800 / 800 Weight 105.7 kg Intake: IV 200 / 200 800 / 800 LR 1000 mL Inj 1,000 ML @ 80 100 / 100 800 / 800 mls/hr IV.CONT .[id number] [facility] Rx# :[id number] Oral 800 / 800 570 / 570 Other: # Voids 375 1 # Bowel Movements 0 - Constitutional no acute distress - Routine Abdominal Exam Present: distended - Detailed Neurological Exam: Coma Scale Verbal Response: Oriented - Routine Psychiatric Exam Present: normal affect Results - Labs CBC & Chem 7: 04/08/18 03:23 04/08/18 04:10 Laboratory Results - last 24 hr 04/08/18 04/08/18 03:23 04:10 Hgb 11.9 L Hct 35.2 L Sodium 138 Potassium 4.0 Chloride 102 Carbon Dioxide 29.2 Anion Gap 7 BUN 14 Creatinine 1.21 Estimated GFR 60 L Random Glucose 123 H Calcium 8.6 Assessment and Plan - Ortho Post Op Day # 2 - Problem List (1) Status post bilateral knee replacements Code(s): Z96.653 - Presence of artificial knee joint, bilateral Status: Acute - Assessment and Plan Waiting placement at [facility] vs SNF
--- NOTE | 2018-04-08 12:06 | P.PNIM ---
Addendum entered and electronically signed by KIRBY Jaimes 15:52: Patient's repeat BP 123/57 with HR 103 Patient status improved - patient feeling much better no longer feeling lightheaded Medically cleared for DC to [facility] Original Note: Subjective Interval history: Patient seen during PT class Follow up abd distention, S/P bilateral knee replacements Patient reports he had a bad night due to bilateral knee pain which is better now Patient reports positive flatus and decreased abd distention Physical Exam Vital signs: Vital Signs 04/07/18 16:00 04/07/18 20:00 04/08/18 00:00 Temperature 97.6 F 97.9 F 97.9 F Pulse Rate 117 H 114 H 115 H Respiratory Rate 19 18 18 Blood Pressure 128/74 135/76 128/59 L Pulse Oximetry 93 L 93 L 93 L 04/08/18 04:00 04/08/18 08:00 Temperature 98 F 98.0 F Pulse Rate 111 H 106 H Respiratory Rate 18 19 Blood Pressure 123/71 129/70 Pulse Oximetry 93 L 93 L Intake & Output 04/07/18 04/08/18 04/08/18 18:59 06:59 18:59 Intake Total 1000 / 1000 570 / 570 800 / 800 Balance 1000 / 1000 570 / 570 800 / 800 Weight 105.7 kg Intake: IV 200 / 200 800 / 800 LR 1000 mL Inj 1,000 ML @ 80 100 / 100 800 / 800 mls/hr IV.CONT .[id number] [facility] Rx# :[id number] Oral 800 / 800 570 / 570 Other: # Voids 375 1 # Bowel Movements 0 Narrative: GENERAL: This is a well-nourished, well-developed patient, in no apparent distress. CARDIOVASCULAR: tachycardic RESPIRATORY: Clear to auscultation. Breath sounds equal bilaterally. GASTROINTESTINAL: Abdomen soft, mild abdominal distension, normal active bowel sounds MUSCULOSKELETAL: Extremities without clubbing, cyanosis. Bilateral lower extremity dressing dry and intact NEURO: Alert & Oriented x4 to person, place, time, situation. Moves all ext x4 Results - Labs CBC & Chem 7: 04/08/18 15:17 04/08/18 04:10 Laboratory Results - last 24 hr 04/08/18 04/08/18 03:23 04:10 Hgb 11.9 L Hct 35.2 L Sodium 138 Potassium 4.0 Chloride 102 Carbon Dioxide 29.2 Anion Gap 7 BUN 14 Creatinine 1.21 Estimated GFR 60 L Random Glucose 123 H Calcium 8.6 Assessment and Plan - Assessment (1) Osteoarthritis of both knees Code(s): M17.0 - Bilateral primary osteoarthritis of knee Status: Chronic Plan: Osteoarthritis bilateral knees s/p Bilateral TKR on 04/06/18 - Pt is a 67 y/o male with HTN, BPH, CKD stage 3, GERD and osteoarthritis. - Pt was admitted to [facility] [place] on 04/06/[address] Ocampo for bilateral total knee replacements for severe osteoarthritis. - Post-op pain control per Ortho - PT daily - IS - Constipation precautions - Eliquis is ordered for DVT prophylaxis post-op HTN - Home meds resumed - Will monitor BP post-operatively CKD, stage 3 - Stable - Monitor labs GERD - PPI Abdominal distension - KUB (04/06) --> gastric distension - encourage movement - reglan 10mg TID x 24 hours. - Simethicone - patient passing flatus and feels that abd distension has improved Tachycardic Symptomatic Hypotension - maybe related to pain - 12 lead EKG ordered reveals ST rate 109 - patient became hypotensive 90s/50s with associated lightheaded feeling during PT class - 500 ml NS bolus - start telemetry - STAT H&H - nurse to recheck BP in 1 hour and call with results (2) Status post bilateral knee replacements Code(s): Z96.653 - Presence of artificial knee joint, bilateral Status: Acute (3) HTN (hypertension) Code(s): I10 - Essential (primary) hypertension Status: Chronic (4) CKD (chronic kidney disease) stage 3, GFR 30-59 ml/min Code(s): N18.3 - Chronic kidney disease, stage 3 (moderate) Status: Chronic (5) GERD (gastroesophageal reflux disease) Code(s): K21.9 - Gastro-esophageal reflux disease without esophagitis Status: Chronic - Attending Attestation Patient examined. Assessment and plan formulated with Katerine TINAJERO I agree with the above. (3) HTN (hypertension) Qualifiers: Hypertension type: essential hypertension Qualified Code(s): I10 - Essential (primary) hypertension (5) GERD (gastroesophageal reflux disease) Qualifiers: Esophagitis presence: esophagitis presence not specified Qualified Code(s): K21.9 - Gastro-esophageal reflux disease without esophagitis
[2018-04-08] MEDS ORDERED: Sodium Chlor 0.9% Inj 500 ML IV.SIG SCH (15:15)
--- NOTE | 2018-04-08 15:46 | MD ---
cc: Dyllan Ocampo MD DATE OF DISCHARGE: 04/08/2018 ADMITTING DIAGNOSIS: Osteoarthritic degeneration, both left and right knees. DISCHARGE DIAGNOSIS: Osteoarthritic degeneration, both left and right knees. DISCHARGE SUMMARY: This is a pleasant 67-year-old male who was admitted on 04/06/2018, at which time he underwent bilateral total knee arthroplasties. He received a course of prophylactic IV antibiotics and postoperatively was started on anticoagulation therapy 23 hours after surgery. He tolerated food and fluids well, began out of bed tolerating weightbearing with physical therapy and CPM machine, and was discharged to [facility] on the second postoperative day in good condition, for instruction and continuation of care. The patient was given a prescription for postoperative pain control for [place]. J. Artemio Ocampo MD [facility]/michelle/[facility] , 11:27 AM , 11:31 AM
[2018-04-08 16:00] LABS: Hematocrit 30.2 % (39.0-51.0); Hemoglobin 10.6 gm/dL (13.0-17.0)
--- NOTE | 2018-04-08 21:00 | ECG ---
Date Performed: 04/08/2018 Time Performed: 12:33:37 PTAGE: 67 years EKG: SINUS TACHYCARDIA NONSPECIFIC T-WAVE ABNORMALITY ABNORMAL RHYTHM ECG PREVIOUS TRACING : 04/08/2018 10.45 Compared to previous tracing, sinus tachycardia is new DOCTOR: Alan Varela Interpretating Date/Time 04/08/2018 20:58:34
[2018-04-08] MEDS: Polyethylene Glycol 3350 17 GM Packet PO SCH (21:23)
[2018-04-09 09:09] VITALS: BP 127/59; PULSE 108; RESP 17; TEMP 97.6; O2SAT 91
[2018-04-09] MEDS: Lisinopril 20 MG Tablet PO SCH (09:43)
[2018-04-09] MEDS: Allopurinol 300 MG Tablet PO SCH (09:43)
[2018-04-09] MEDS: Pantoprazole Sodium 20 MG DR Tablet PO SCH (09:43)
[2018-04-09] MEDS: Simethicone 125 MG Chew Tablet PO SCH (09:43)
[2018-04-09] MEDS: Multivitamin/Minerals Therapeutic Tablet PO SCH (09:43)
[2018-04-09] MEDS: Senna/Docusate Sodium 8.6/50 MG Tablet PO SCH (09:43)
[2018-04-09] MEDS: hydroCHLOROthiazide 25 MG Tablet PO SCH (09:44)
[2018-04-09] MEDS: amLODIPine 5 MG Tablet PO SCH (09:44)
[2018-04-09] MEDS: Amitriptyline 25 MG Tablet PO SCH (09:44)
== END 2018-04-09 11:21 ==
LOC: HSDI 05:31 → EDSTATUS 07:30 → N06 15:59
PROVIDERS: ADMIT Surgery; ATTEND Surgery